=== PATIENT | male | born 1950 | race Two or more races ===

== ENCOUNTER 2025-04-10 08:49 | Emergency (ER) | payer MEDICARE, SELFPAY ==
[2025-04-10 08:54] VITALS: BP 122/80; PULSE 79; RESP 18; TEMP 37.1; O2SAT 97; BMI 17.8
--- NOTE | 2025-04-10 09:07 | XR_ITS ---
EXAMINATION: AP chest single view TECHNIQUE: AP portable sitting chest single view Date and time: April 10, 2025, 0921 hours INDICATIONS: Chest pain today. FINDINGS: Normal heart size Lungs are clear. Moderate osteopenia IMPRESSION: No active disease
[2025-04-10 09:13] VITALS: BP 105/74; BP 111/76; BP 113/71; PULSE 86; PULSE 93
--- NOTE | 2025-04-10 09:13 | PD.EDDIZZY ---
ED Dizzyness RME/HPI General Chief Complaint: Dizziness Stated Complaint: DIZZINESS Time Seen by Provider: 04/10/25 09:06 Arrival date/time: 04/10/25 08:49 RME / HPI RME / HPI Narrative: 74 year old male with history of hypertension currently on Bystolic presents to the ED brought in from the [facility] care post-op unit within this facility for evaluation of light headedness today. 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 States as he was putting on port-op orders he suddenly began to feel light headed. Reportedly has had similar light headed sensation on/off over the last 4-5 months that usually resolves several minutes after sitting. However, symptoms today did not improve, prompting ED visit. No other associated symptoms reported. Denies headache, vision changes, or loss of sensation/movement. Per RN, patients initial SBP was 72. In the ED, he reports feeling improved and blood pressure now 122/80, HR 85. No complaints reported. Patient states he is eating and drinking okay. Patient states his Bystolic was increased about 1 year ago. Denies any recent changes to medication doses. Tobacco Sieve Operator: Dr. Pozo in [place], [place] Related Data Home Medications ?Medication ?Instructions ?Recorded ?Confirmed esomeprazole magnesium 20 mg 20 mg PO QDAY 10/15/20 10/15/20 capsule,delayed release (Nexium) nebivolol 10 mg tablet mg 04/10/25 tamsulosin 0.4 mg capsule mg PO 04/10/25 Allergies Allergy/AdvReac Type Severity Reaction Status Date / Time Penicillins Allergy Rash Verified 10/15/20 17:17 Review of Systems Review of Systems Systems Reviewed: All systems reviewed, normal except as documented Past Medical History Past Medical History CARDIAC: Positive Cardiac Disorders, Hypercholesterolemia (resolved) and Hypertension GASTROINTESTINAL: Positive Gastrointestinal Disorders and Gastroesophageal Reflux Disease MUSCULOSKELETAL: Positive Musculoskeletal Disorders and Fractures OTHER HISTORY: Positive Falls Family History FAMILY HISTORY: Positive Family Cardiac Disorders and Family Cancer Social History SMOKING STATUS: Never smoker ED Exam Narrative Physical exam: GENERAL APPEARANCE: alert and oriented x 4, well-developed, well-nourished, no acute distress HEENT: Normocephalic, atraumatic; pupils equal, round, reactive to light; EOMI; mucous membranes pink, moist; oropharynx clear NECK: Supple LUNGS: CTABL; no wheezes, no rales, no rhonchi HEART: Regular rate, regular rhythm; normal S1, S2; no murmurs ABDOMEN: non distended; normal BS; soft, no tenderness, no guarding, no rebound; no masses, no organomegaly, no hernia BACK: no CVA tenderness EXTREMITIES: atraumatic; no edema NEUROLOGIC: awake; alert and oriented x4; cranial nerves II-XII grossly intact; no focal sensory or motor deficits PSYCHIATRIC: appropriate mood and affect SKIN: warm, dry, normal color; no rashes Course Quality Measures none Orders Category Date Time Status Material Control Clerk NOW Care 04/10/25 09:07 Active EKG (ED ONLY) *Do not use* NOW Care 04/10/25 09:03 Completed Orthostatic Vitals NOW Care 04/10/25 09:[address] head/brain wo con Stat Exams 04/10/25 10:31 Completed EKG (ED Only) Stat Exams 04/10/25 09:03 Ordered XR chest 1V portable Stat Exams 04/10/25 09:07 Completed B-Type Natriuretic Peptide Stat Lab 04/10/25 09:18 Completed CBC Stat Lab 04/10/25 09:18 Completed Comprehensive Metabolic Panel Stat Lab 04/10/25 09:18 Completed Lipase Stat Lab 04/10/25 09:18 Completed Magnesium Stat Lab 04/10/25 09:18 Completed Partial Thromboplastin Time Stat Lab 04/10/25 09:18 Completed Prothrombin Time with INR Stat Lab 04/10/25 09:18 Completed Thyroid Stimulating Hormone Stat Lab 04/10/25 09:18 Completed Troponin I Stat Lab 04/10/25 09:18 Completed Vital Signs Vital signs: Vital Signs Temperature 98.7 F 04/10/25 08:54 Pulse Rate 79 04/10/25 08:54 Respiratory Rate 18 04/10/25 08:54 Blood Pressure 122/80 04/10/25 08:54 Pulse Oximetry (%) 97 04/10/25 08:54 Oxygen Delivery Method Room Air 04/10/25 08:54 Pulse ox is 97% on room air which is adequate. Dizziness MDM Narrative MDM Narrative:: Tatyana James am scribing for and in the presence of Dr. Robert. 1115: The patient remains clinically stable throughout the emergency department visit. We reviewed all the results, analysis, and treatment plans. Patient states he had a CTA brain performed 6 months ago and was normal. 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 Pozo to discuss possibly reducing his Bystolic or also switching from a beta jemima to another form of antihypertensive medication. Patient is amenable to discharge. Strict return precautions were outlined. Patient data External records reviewed:: [facility] previous records Clinical information provided by:: patient Social determinants that could affect healthcare access:: none Patient has the following chronic illnesses:: Hypertension How is presenting disease/condition affected by chronic disease/condition?: exacerbated by Evaluation data The following diagnostics were reviewed and interpreted by me:: lab results and radiology exam(s) Lab and/or radiology exams considered but not ordered:: None Interpretation Summary: Ordering Physician: Karely Robert MD Date of Service: 04/10/25 Procedure(s): XR chest 1V portable Accession Number(s): [id number] cc: Brad Rosa MD; NO PRIMARY/FAMILY,PHYSICIAN; Karely Robert MD~ EXAMINATION: AP chest single view TECHNIQUE: AP portable sitting chest single view Date and time: April 10, 2025, 0921 hours INDICATIONS: Chest pain today. FINDINGS: Normal heart size Lungs are clear. Moderate osteopenia IMPRESSION: No active disease Dictated By: Brad Rosa MD Signed By: <Electronically signed by Brad Rosa MD in [place]> 04/10/25 1025 Ordering Physician: Karely Robert MD Date of Service: 04/10/25 Procedure(s): CT head/brain wo con Accession Number(s): [id number] cc: Brad Rosa MD; NO PRIMARY/FAMILY,PHYSICIAN; Karely Robert MD~ Examination: CT brain head without contrast. 2-D sagittal coronal reconstructions Date and time of exam: April 10, 2025, 10:44 a.m., comparison March 14, 2021 INDICATIONS: Syncopal episode and dizziness beginning this morning CTDI: vol (mGy): 49.8 DLP: (mGycm): 1033 Technique: Multiple CT axial sections of the brain have been obtained, 5 mm slice thickness. Contrast has not been administered. 2-D sagittal, coronal reconstructions have been obtained Low dose protocols were performed. One or more of the following dose reduction techniques were used; automated exposure control, adjustment of the mA and/or KV according to patient size, use of iterative reconstruction technique. Findings: No significant ventricular enlargement. Intra-axial or extra-axial hemorrhage density is not seen. No mass effect or midline shift Basal cisterns are not remarkable. Fourth ventricle is midline. Cranial vault intact. Impression: Negative for acute hemorrhage, mass effect or midline shift As clinically warranted, consider brain MRI follow-up Dictated By: Brad Rosa MD Signed By: <Electronically signed by Brad Rosa MD in [place]> 04/10/25 1057 Medications / Prescriptions Medications or Prescriptions considered but not ordered:: none Medication administrations:: None Consultations Consultation(s) initiated? (list below): No Diagnosis Most likely diagnosis given after review of the tests above:: Near syncope Transient hypotension Admission Indicated Admission indicated?: not indicated Explain why admission is indicated or not indicated:: With no condition needing emergent intervention, there was no indication for admission. Admission Request Was there a request for admission?: No Disposition Plan Disposition Plan: Discharge Discharge Attestation Discharge Attestation: The patient and all family members were given an opportunity to ask questions and understood the discharge instructions. Discharge instructions specifically effects, indications for sooner follow up or return to the emergency department, and the expected course of current diagnosis. Patient condition: Stable Discharge Plan Plan Patient Disposition: HOME (Self Care) Prescriptions/Referrals Prescriptions/Med Rec: No Action esomeprazole magnesium [Nexium] 20 mg Capsule,Delayed Release(Dr/Ec) 20 mg PO QDAY tamsulosin 0.4 mg capsule PO Patient Comments: TAKE 1 CAPSULE BY MOUTH EVERY DAY nebivolol 10 mg tablet Patient Comments: TAKE ONE TABLET BY MOUTH EVERY DAY Referrals: Jason Gill MD [Referring Provider, Cardiology] No Primary/Family,Physician [Primary Care Provider] - In 1 week Problem List Clinical Impression: Near syncope, Transient hypotension Patient/Caregiver Discharge Instructions Education Materials: ED Low Blood Pressure, All Causes, ED Near-Fainting, Uncertain Cause Additional Instructions: Follow up with Dr. Gill to discuss blood pressure medication adjustments. Print Language: Singaporean Stand Alone Forms: [employer] Award Info., Patient Portal Info Letter
[2025-04-10 09:25] LABS: Basophils # (Auto) 0.0 Thou/mm3 (0.0-0.2); Basophils % (Auto) 0 % (0-2.5); Eosinophils # (Auto) 0.0 Thou/mm3 (0.0-0.5); Eosinophils % (Auto) 1 % (0-10); Hematocrit 42.3 % (41.0-53.0); Hemoglobin 14.0 g/dL (13.5-16.0); Immature Granulocytes Auto 0.01 Thou/mm3 (0.00-0.00); Lymphocytes # (Auto) 2.0 Thou/mm3 (1.0-4.8); Lymphocytes % (Auto) 26 % (10-50); Mean Corpuscular HGB Conc 33.1 g/dl (31.0-37.0); Mean Corpuscular Hemoglobin 28.3 pg (25.0-35.0); Mean Corpuscular Volume 86 fL (80-100); Monocytes # (Auto) 0.5 Thou/mm3 (0.0-0.8); Monocytes % (Auto) 6 % (0-12); Neutrophils # (Auto) 5.1 Thou/mm3 (1.8-7.7); Neutrophils % (Auto) 66 % (37-80); Nucleated Red Blood Cell # 0.00 Thou/mm3 (0.00-0.00); Nucleated Red Blood Cell % 0 /100 WBC (0); Platelet Count 181 Thou/mm3 (140-440); RDW Standard Deviation 39.9 fL (35.1-43.9); Red Blood Count 4.95 Miln/mm3 (4.50-5.90); White Blood Count 7.7 Thou/mm3 (3.8-10.6)
[2025-04-10 09:47] LABS: INR 1.1 (0.9-1.3); Partial Thromboplastin Time 24.3 Seconds (22.0-36.0); Prothrombin Time 11.7 Seconds (9.0-12.2)
[2025-04-10 09:48] VITALS: BP 118/80; PULSE 89; RESP 19; TEMP 37.1; O2SAT 98
[2025-04-10 09:53] LABS: B-Type Natriuretic Peptide < 20 pg/mL (0-100)
[2025-04-10 09:55] LABS: Alanine Aminotransferase 15 U/L (10-49); Albumin, Serum 5.0 gm/dL (3.4-4.8); Albumin/Globulin Ratio 1.7 (1.2-2.2); Alkaline Phosphatase 54 U/L (46-116); Anion Gap 9 (7-16); Aspartate Amino Transferase 20 U/L (0-34); BUN/Creatinine Ratio 11 Ratio (12-20); Bilirubin,Total 0.9 mg/dL (0.3-1.2); Blood Urea Nitrogen 10 mg/dL (9-23); Calcium 9.4 mg/dL (8.3-10.6); Calcium (Corrected) 9.4 mg/dL (8.5-10.1); Carbon Dioxide 25.6 mMol/L (20.0-31.0); Chloride 104 mMol/L (98-107); Creatinine (Component) 0.9 mg/dL (0.6-1.3); Estimated Creatinine Clearance 55.7 mL/min (>60); Globulin 2.9 gm/dL (2.3-3.5); Glucose 165 mg/dL (74-106); Lipase 39 U/L (12-53); Magnesium 1.8 mg/dL (1.6-2.6); Osmolality,Calculated 280 (275-295); Potassium 4.0 mMol/L (3.4-5.1); Sodium 139 mMol/L (136-145); Total Protein 7.9 gm/dL (5.7-8.2); Troponin I < 0.002 ng/mL (0.0-0.045); eGFR > 60 See Note
[2025-04-10 10:00] VITALS: PULSE 85
--- NOTE | 2025-04-10 10:31 | XR_ITS ---
Examination: CT brain head without contrast. 2-D sagittal coronal reconstructions Date and time of exam: April 10, 2025, 10:44 a.m., comparison March 14, 2021 INDICATIONS: Syncopal episode and dizziness beginning this morning CTDI: vol (mGy): 49.8 DLP: (mGycm): 1033 Technique: Multiple CT axial sections of the brain have been obtained, 5 mm slice thickness. Contrast has not been administered. 2-D sagittal, coronal reconstructions have been obtained Low dose protocols were performed. One or more of the following dose reduction techniques were used; automated exposure control, adjustment of the mA and/or KV according to patient size, use of iterative reconstruction technique. Findings: No significant ventricular enlargement. Intra-axial or extra-axial hemorrhage density is not seen. No mass effect or midline shift Basal cisterns are not remarkable. Fourth ventricle is midline. Cranial vault intact. Impression: Negative for acute hemorrhage, mass effect or midline shift As clinically warranted, consider brain MRI follow-up
[2025-04-10 10:57] LABS: Thyroid Stimulating Hormone 5.40 uIU/mL (0.55-4.78)
[2025-04-10 11:28] VITALS: BP 143/90; PULSE 90; RESP 18; TEMP 36.6; O2SAT 96
== END 2025-04-10 11:31 | disposition home or self-care (01) ==
PROVIDERS: Emergency Provider Emergency Medicine
DX: I95.9 Hypotension, unspecified (principal); R55 Syncope and collapse; R07.9 Chest pain, unspecified
CPT/HCPCS: 36415; 70450; 71045; 80053; 83690; 83735; 83880; 84443; 84484; 85025; 85610; 85730; 93005; 99284